=== PATIENT | male | born 1950 | race Caucasian/White ===

== ENCOUNTER 2017-09-08 10:27 | Emergency (ER) | payer OTHER, MEDICARE ==
[~2017-09-08] VITALS: Ht 172.7 cm; Wt 117.9 kg
[~2017-09-08 10:27] MED LIST: AUGMENTIN 875 M1 TAB PO; COUMADIN 6 MG TA6 MG PO; DOK100 M1 PO; HYDRODIURIL 112.5 M1 PO; LASIX20 MG PO; METFORMIN HCL1000 MG PO; PERCOCET 325 MG1 TA2 PO; PIOGLITAZONE HY15 MG PO; PRAVASTATIN SOD20 MG PO; TRADJENTA5 MG PO
--- NOTE | 2017-09-08 10:46 | ED AMS/SEIZURE/WEAK/DIZZY ---
History of Present Illness General Chief Complaint: General Adult Stated Complaint: LIGHTHEADED Source: patient, old records Exam Limitations: no limitations Vital Signs & Intake/Output Vital Signs & Intake/Output Vital Signs Date Time Temp Pulse Resp B/P B/P Pulse O2 O2 Flow FiO2 Mean Ox Delivery Rate 09/08 1433 8.3 67 18 132/67 96 Room Air 09/08 1151 64 134/66 09/08 1100 75 09/08 1100 98 Room Air 09/08 1031 95.8 66 18 166/76 96 Room Air Allergies Coded Allergies: NO KNOWN ALLERGIES (04/25/14) Reconcile Medications AMOXICILLIN/POTASSIUM CLAV (Augmentin 875-125 Tablet) 875 MG/125 MG TAB 1 TAB PO BID GANGRENOUS GALLBLADDER TAKE WITH FOOD Docusate Sodium (Colace) 100 MG TABLET 1 TAB PO BID PRN CONSTIPATION TAKE NEEDED FOR CONSTIPATION WHILE USING PAIN MEDICATION Furosemide (Lasix) 20 MG TABLET 1 TAB PO DAILY EDEMA Linagliptin (Tradjenta) 5 MG TABLET 1 TAB PO DAILY DIABETES (Reported) METFORMIN HCL (Metformin HCl) 1,000 MG TABLET 1 TAB PO BID DIABETES (Reported ) OXYCODONE HCL/ACETAMINOPHEN (Percocet 5-325 MG Tablet) 325 MG/5 MG TAB 1-2 TAB PO Q4P PRN PAIN Pioglitazone Hydrochloride 15 MG TAB 1 TAB PO DAILY DIABETES (Reported) Pravastatin (Pravastatin Sodium) 20 MG TAB 1 TAB PO DAILY CHOLESTEROL ( Reported) Warfarin Sodium (Coumadin) 6 MG TABLET 1 TAB PO DAILY BLOOD THINNER (Reported ) Triage Note: 67 Y/O MALE C/O FEELING LIGHTHEADED SINCE THIS AM. REPORTS SUDDEN ONSET WHILE WATCHING TV. DENIES PAIN. DENIES SOB. STATES HE HAS NOT EATEN YET TODAY, FINGERSTICK 130. TAKEN TO EKG ALCOVE AND C/O NAUSEA. BROUGHT TO BATHROOM PER REQUEST, + VOMIT. Triage Nurses Notes Reviewed? 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 While watching TV he suddenly became lightheaded. On arrival to the ER the patient was nauseous vomiting 1 and states his symptoms completely resolved. No recent fall or head trauma he denies tobacco alcohol or drug use. He denies any chest pain shortness of breath abdominal pain. There is no hematemesis. No sick contacts no diarrhea no abdominal pain. He denies any dizziness during the episode (Russ Dubon) Past History Travel History Traveled to [place] past 21 day No Medical History Any Pertinent Medical History? see below for history Neurological: NONE EENT: NONE Cardiovascular: NONE Respiratory: NONE Gastrointestinal: NONE Hepatic: NONE Renal: NONE Musculoskeletal: NONE Psychiatric: NONE Endocrine: diabetes Blood Disorders: NONE Cancer(s): NONE CAR SALES ASSOCIATE/Reproductive: NONE History of MRSA: No History of VRE: No History of CDIFF: No Tetanus Vaccine: 12/20/12 Surgical History Surgical History: non-contributory Psychosocial History Who do you live with Patient/Self Services at Home None What is your primary language Cymro Tobacco Use: Never used Family History Hx Contributory? No (Russ Dubon) Review of Systems Review of Systems Constitutional: Reports: see HPI. Comments Review of systems: See HPI, All other systems negative. Constitutional, no chills no fever, HEENT: no sore throat no congestion Cardiovascular: No chest pain Skin: no rashes, no change in skin Respiratory: No dyspnea no cough no sputum GI: No nausea no vomiting, no diarrhea, : No dysuria No hematuria, no frequency Muscle skeletal: No joint pain, no back pain, no neck pain, Neurologic: , no headache Psych: No stress no depression,. Heme/endocrine: No bruising no bleeding Immunology: No lymphadenopathy (Russ Dubon) Physical Exam Physical Exam General Appearance: well developed/nourished, alert, awake Comments: Well-developed well-nourished person in no acute distress HEENT: Normal EENT exam; PERRL, EOMI. HEAD is atraumatic. moist mucous membranes. Neck: Supple, normal range of motion Back: Nontender, no CVA tenderness. Full range of motion Cardiovascular: Regular rate and rhythms no murmurs rubs or gallops, normal JVP Respiratory: Chest nontender.There were no bony deformities, no asymmetry. No respiratory distress. Patient speaking in full complete sentences. Breath sounds clear to auscultation bilaterally: NO W/R/R Abdomen: Soft, nontender nondistended, no appreciable organomegaly. Normal bowel sounds. No rebound/guarding, Extremity: No edema, full range of motion of extremities Neuro: Alert oriented x3, motor sensory normal, cranial nerves II through XII grossly intact. There were no obvious focal neurologic abnormalities. Skin: No appreciable rash on exposed skin, skin is warm and dry. Psych: Mood and affect is normal, memory and judgment is normal. Core Measures ACS in differential dx? Yes CVA/TIA Diagnosis No Sepsis Present: No Sepsis Focused Exam Completed? No (Ct SCHNEIDER,Russ) Progress Differential Diagnosis: arrythmia, anemia, benign positional vertigo, CVA/stroke , dehydration, electrolyte imbalance, GI bleed, vertebrobasilar insuff, HYPOGLYCEMIA, REED, AMI Plan of Care: Orders Procedure Date/time Status Consistent Carbohydrate 3 09/08 L Active LACTIC ACID 09/08 1336 Complete TROPONIN LEVEL 09/08 1330 Complete EKG 09/08 1330 Active Add-on Test (ER Only) 09/08 1101 Active Telemetry/Crawler Tractor Operator 09/08 1058 Active Saline Lock 09/08 1037 Active LACTIC ACID 09/08 1036 Complete TROPONIN LEVEL 09/08 1032 Complete PARTIAL THROMBOPLASTIN TIME 09/08 1032 Complete PROTHROMBIN TIME 09/08 1032 Complete COMPREHENSIVE METABOLIC PANEL 09/08 1032 Complete CBC WITHOUT DIFFERENTIAL 09/08 1032 Complete EKG 09/08 1032 Active Laboratory Tests 09/08/17 1407: Troponin I < 0.01 09/08/17 1340: Lactic Acid 1.8 09/08/17 1135: Urine Color Cancelled, Urine Clarity Cancelled, Urine pH Cancelled, Ur Specific [place] Cancelled, Urine Protein Cancelled, Urine Ketones Cancelled, Urine Nitrite Cancelled, Urine Bilirubin Cancelled, Urine Urobilinogen Cancelled, Ur Leukocyte Esterase Cancelled, Ur Microscopic Cancelled, Urine Hemoglobin Cancelled, Urine Glucose Cancelled 09/08/17 1054: Lactic Acid 2.3 H 09/08/17 1054: Anion Gap 12, Estimated GFR > 60, BUN/Creatinine Ratio 22.5, Glucose 142 H, Calcium 9.1, Total Bilirubin 0.5, AST 33, ALT 41, Alkaline Phosphatase 64, Troponin I < 0.01, Total Protein 7.4, Albumin 4.1, Globulin 3.3, Albumin/ Globulin Ratio 1.2, CBC w Diff NO MAN DIFF REQ, RBC 4.55 L, MCV 94.4 H, MCH 31.8 H, MCHC 33.7, RDW 13.7, MPV 7.6, Gran % 58.1, Lymphocytes % 26.3, Monocytes % 9.3, Eosinophils % 6.0 H, Basophils % 0.3, Absolute Granulocytes 3.6, Absolute Lymphocytes 1.6, Absolute Monocytes 0.6, Absolute Eosinophils 0.4, Absolute Basophils 0 09/08/17 1032: PT 31.0 H, INR 2.81 H, APTT 42 H Labs ordered old records reviewed patient resting in no acute distress at this time 1400 PT RESTING IN NAD, NO FURTHER VOMITING, RESTING IN NAD, REQUESTING FOOD TO EAT 1455 I discussed with Rhys all his labs he is tolerating by mouth, no residual nausea vomiting. Repeat lactic acid troponin are within normal limits advise close follow up with his primary care physician tomorrow. Return precautions were discussed at length. Diagnostic Imaging: Viewed by Me: Radiology Read. Discussed w/RAD: Radiology Read. Radiology Impression: PATIENT: RHYS GALLAGHER PRESENT AGE: 67 PATIENT ACCOUNT NO: [id number] : 50 LOCATION: [facility] ORDERING PHYSICIAN: Russ SCHNEIDER SERVICE DATE: 09/08/17 EXAM TYPE: RAD - XRY- PORTABLE CHEST XRAY EXAMINATION: XR PORTABLE CHEST CLINICAL INFORMATION: Lightheadedness COMPARISON: Multiple priors, most recent from 04/26/2014. TECHNIQUE: Portable frontal view of the chest was obtained. FINDINGS: Low lung volumes with bronchovascular crowding. Mild left basilar atelectasis. No focal consolidation. No edema. No pneumothorax or focal pleural effusion. Bilateral acromioclavicular joint osteoarthritis. IMPRESSION: Low lung volumes and minimal left basilar atelectasis. DICTATED BY: Zainab Ledezma MD DATE/TIME DICTATED:09/08 RN FIRST ASSIST:HATTIE DATE/TIME TRANSCRIBED:09/08/171144 CONFIDENTIAL, DO NOT COPY WITHOUT APPROPRIATE AUTHORIZATION. <Electronically signed in Other Vendor System> SIGNED BY: Zainab Ledezma MD 09/08/17 1150 Initial ED EKG: normal intervals, normal p-waves, normal QRS complex, normal sinus rhythm Prior EKG: unchanged Repeat EKG: unchanged (HanRuss Nice) Departure Departure Time of Disposition: 1450 Disposition: HOME OR SELF CARE Condition: Stable Clinical Impression Primary Impression: Lightheadedness Referrals: Daniel HUNTER,Rashard Murrieta (PCP/Family) Additional Instructions: Follow-up with your primary care physician tomorrow. Zofran if needed for nausea. Rankin diet clear liquids advance as tolerated. Departure Forms: Customer Survey General Discharge Information (Russ Dubon) PA/SPECIAL EDUCATION SECRETARY Co-Sign Statement Statement: ED Attending supervision documentation- x I saw and evaluated the patient. I have also reviewed all the pertinent lab results and diagnostic results. I agree with the findings and the plan of care as documented in the PA's/SPECIAL EDUCATION SECRETARY's documentation. [] I have reviewed the ED Record and agree with the PA's/SPECIAL EDUCATION SECRETARY's documentation. [] Additions or exceptions (if any) to the PAs/SPECIAL EDUCATION SECRETARY's note and plan are summarized below: [] (Desmond HUNTER,Brody)
[2017-09-08 11:04] LABS: ABSOLUTE BASOPHIL COUNT 0 /CUMM (0.0-0.2); ABSOLUTE EOSINOPHIL COUNT 0.4 /CUMM (0.0-0.7); ABSOLUTE GRANULOCYTE CT 3.6 /CUMM (1.4-6.5); ABSOLUTE LYMPH COUNT 1.6 /CUMM (1.2-3.4); ABSOLUTE MONOCYTE COUNT 0.6 /CUMM (0.10-0.60); BASOPHIL % 0.3 % (0.0-2.0); GRANULOCYTE % 58.1 % (42.2-75.2); MEAN CORPUSCULAR HGB 31.8 PG (27.0-31.0); MEAN CORPUSCULAR HGB CONC 33.7 G/DL (33.0-37.0); MEAN CORPUSCULAR VOLUME 94.4 FL (80.0-94.0); MEAN PLATELET VOLUME 7.6 FL (7.4-10.4); PLATELET COUNT 196 /CUMM (130-400); RBC DISTRIBUTION WIDTH 13.7 % (11.5-14.5); RED BLOOD CELL CT 4.55 /CUMM (4.70-6.10); WHITE BLOOD CELL COUNT 6.2 /CUMM (4.8-10.8)
[2017-09-08 11:30] LABS: PTT 42 SEC (25-37)
--- NOTE | 2017-09-08 11:51 | RADIOLOGY REPORT ---
EXAMINATION: XR PORTABLE CHEST CLINICAL INFORMATION: Lightheadedness COMPARISON: Multiple priors, most recent from 04/26/2014. TECHNIQUE: Portable frontal view of the chest was obtained. FINDINGS: Low lung volumes with bronchovascular crowding. Mild left basilar atelectasis. No focal consolidation. No edema. No pneumothorax or focal pleural effusion. Bilateral acromioclavicular joint osteoarthritis. IMPRESSION: Low lung volumes and minimal left basilar atelectasis.
[2017-09-08 14:33] VITALS: BP 132/67
== END 2017-09-08 15:21 ==
LOC: ERH 10:27
PROVIDERS: Physician Assistant Medical
DX: R42 Dizziness and giddiness (principal); R11.2 Nausea with vomiting, unspecified; E11.9 Type 2 diabetes mellitus without complications; Z79.84 Long term (current) use of oral hypoglycemic drugs; Z79.01 Long term (current) use of anticoagulants
CPT/HCPCS: 71045; 93005; 93010; 96361; 96374; 99291; J2405